=== PATIENT | male | born 1980 | race Caucasian/White ===

== ENCOUNTER 2022-04-24 17:42 | Emergency (ER) | payer OTHER, SELFPAY ==
[2022-04-24 17:45] VITALS: BP 129/71; PULSE 59; RESP 20; TEMP 37; O2SAT 100
--- NOTE | 2022-04-24 19:52 | ED.WOUNDLAC ---
HPI - Wound/Laceration General Chief Complaint: Wound/Laceration Stated Complaint: wounds to legs Time Seen by Provider: 04/24/22 19:29 History of Present Illness HPI narrative: 41-year-old male presented to the emergency department for evaluation of an evolving abscess on his left leg. Patient reports he has a prior history of an abscess to his left upper leg approximately 8 months ago. Patient states about 4 weeks ago he also developed an abscess to the left leg and that it resolved. Patient states few days ago he had 3 new abscesses to the left upper leg. Patient denies any other abscesses at this time. Patient [place] and was started on Bactrim. Patient felt that the redness was worsening so he presented to an urgent care for evaluation. Patient was instructed to present to the emergency department. Patient states that he has had some drainage from the wounds. Patient denies any other significant past medical history. Related Data Home Medications Medication Instructions Recorded Confirmed naproxen 500 mg tablet (Naprosyn) mg 04/24/22 sulfamethoxazole 800 tablet 04/24/22 mg-trimethoprim 160 mg tablet (Bactrim DS) Allergies Allergy/AdvReac Type Severity Reaction Status Date / Time No Known Allergies Allergy Verified 04/24/22 19:54 Review of Systems Review of Systems: CONSTITUTIONAL: Denies fever, chills, or sweats. EYES: Denies visual changes, redness, or discharge. ENT: Denies rhinorrhea, congestion, sore throat, or otalgia. CARDIOVASCULAR: Denies chest pain, palpitations, or edema. RESPIRATORY: Denies cough or dyspnea. GASTROINTESTINAL: Denies abdominal pain, nausea, vomiting, or diarrhea. GENITOURINARY: Denies dysuria or hematuria. SKIN: See HPI MUSCULOSKELETAL: Denies back pain, joint pain, or myalgia. NEUROLOGIC: Denies headache, numbness, or weakness. PSYCHIATRIC: Denies anxiety or depression. Exam Narrative: APPEARANCE: Well appearing, no pain, no distress, well-nourished. HEAD: normocephalic, atraumatic. EYES: PERRLA/EOMI, conjunctivae clear. NOSE: Normal no drainage RESPIRATORY: Airway patent, respirations nonlabored. Clear to auscultation bilaterally, no rales, rhonchi, wheezing. CARDIOVASCULAR: Regular rate and rhythm without murmurs rubs or gallops. ABDOMINAL: Soft, nontender, nondistended, normal bowel sounds MUSCULOSKELETAL: Moves all extremities. Strength/ROM intact, No edema, No calf tenderness. NEURO: Alert. Cranial nerves II through XII intact. Good gait. Good coordination SKIN: 3 small abscesses to the left upper leg. Bedside ultrasound showed no abscess amenable to drainage. PSYCHIATRIC: Normal affect/mood. Course Course Emergency Course: Bedside ultrasound showed no significant fluctuance of the abscesses. The lower wound did have a small amount of fluid but is draining spontaneously. Patient was updated on the results of the work-up and plan for follow-up. Patient is on Bactrim and was recommended to continue this. Patient was also educated on reasons to return to the emergency room. Vital Signs Vital signs: Vital Signs Temperature 98.6 F 04/24/22 17:45 Pulse Rate 59 L 04/24/22 17:45 Respiratory Rate 20 04/24/22 17:45 Blood Pressure 129/71 04/24/22 17:45 Pulse Oximetry 100 04/24/22 17:45 Oxygen Delivery Room Air 04/24/22 17:45 Temperature 98.6 F 04/24/22 17:45 Pulse Rate 70 04/24/22 19:56 Respiratory Rate 18 04/24/22 19:56 Blood Pressure 131/86 04/24/22 19:56 Pulse Oximetry 98 04/24/22 19:56 Oxygen Delivery Room Air 04/24/22 17:45 Discharge Plan Discharge Clinical Impression: Abscess Patient Disposition: Home, Self-Care Condition: Stable Instructions: Antibiotic Form, Abscess (ED) Additional Instructions: Continue antibiotics until completed Wound care as directed. Have close follow-up with your primary care physician for a wound check. Prescriptions: No Action
[2022-04-24 19:56] VITALS: BP 131/86; PULSE 70; RESP 18; O2SAT 98
== END 2022-04-24 20:30 | disposition home or self-care (01) ==
LOC: ANHED 20:09
PROVIDERS: Emergency Provider Emergency Medicine
DX: L02.416 Cutaneous abscess of left lower limb (principal)
CPT/HCPCS: 99281

== ENCOUNTER 2022-04-28 07:19 | Emergency (ER) | payer OTHER, SELFPAY ==
--- NOTE | ~2022-04-28 | XR_ITS ---
XR chest 1V portable DATE: 04/28/2022 08:14 INDICATION: Fever, body chills. Face rash. Headache. TECHNIQUE: Portable upright AP chest views on 04/28/2022 at 0810 hours COMPARISON: None FINDINGS: Normal heart size. No hilar or mediastinal enlargement. No pulmonary infiltrate or consolid ation, pleural effusion or pulmonary vascular congestion or pneumothorax is detected. There is dextroscoliosis of the thoracic spine and levoscoliosis of the lumbar spine. IMPRESSION: No active cardiopulmonary disease Reviewed, dictated and finalized at location B.
[2022-04-28 07:23] VITALS: BP 142/90; PULSE 91; RESP 20; TEMP 37.2; O2SAT 100
--- NOTE | 2022-04-28 07:54 | ED.GENADULT ---
HPI - General Adult General Chief complaint: Recheck/Abnormal Lab/Rx Stated complaint: MRSA and Fever Time Seen by Provider: 04/28/22 07:33 Source: patient, RN notes reviewed and old records reviewed Mode of arrival: ambulatory Limitations: no limitations History of Present Illness HPI narrative: This is a 41 year old male who presents for evaluation of rash, fever, chills. Patient has had multiple wounds to his left thigh, and he has been diagnosed with MRSA and he has been on bactrim for over 1 week. He is reporting chills and fever since Monday. He reports temperature of 100 F this morning and he took naproxen . He also reports redness and itching to his face. He has some drainage from his wounds. He also notes cough for 2 days. He denies nausea, vomiting, diarrhea, sob, chest pain, sore throat, runny nose or urinary symptoms. He has appointment with his doctor tomorrow. Related Data Home Medications Medication Instructions Recorded Confirmed naproxen 500 mg tablet (Naprosyn) mg 04/24/22 sulfamethoxazole 800 tablet 04/24/22 mg-trimethoprim 160 mg tablet (Bactrim DS) Allergies Allergy/AdvReac Type Severity Reaction Status Date / Time No Known Allergies Allergy Verified 04/24/22 19:54 Review of Systems Review of Systems: All systems reviewed & are unremarkable except as noted in HPI and below Constitutional: Constitutional: Reports chills, Reports fatigue and Reports fever(s) ENT: Denies nasal congestion and Denies sore throat Cardiovascular: Cardiovascular: Denies chest pain Respiratory: Respiratory: Denies chest congestion and Reports cough Gastrointestinal: Gastrointestinal: Denies abdominal pain, Denies nausea and Denies vomiting Genitourinary: Genitourinary: Denies hematuria, Denies oliguria and Denies urinary frequency Musculoskeletal: Musculoskeletal: Reports myalgias Integumentary/Breasts: Skin/Breast: Reports pruritus, Reports erythema and Reports rash PMFSH Past Medical History Medical History (Updated 04/28/22 @ 11:06 by Temi Kerr MD) Patient denies medical problems Surgical History Surgical History (Updated 04/28/22 @ 07:59 by Temi Kerr MD) No pertinent past surgical history Social History Social History (Updated 04/28/22 @ 07:59 by Temi Kerr MD) Smoking status: Never smoker Exam Const: General: healthy appearing and alert Nutritional Appearance: well nourished Orientation/consciousness: patient oriented x3 Limitations: no limitations HENMT: Ears: TM's normal bilaterally General nose exam: Normal nares present Face and sinus: sinuses nontender Mouth: Yes lip normal and Yes moist mucous membranes Throat: uvula midline Other: erythematous Eyes: Conjunctivae: conjunctivae normal EOM: EOMs intact bilaterally Resp: Effort & Inspection: normal respiratory effort Auscultation: clear to auscultation bilaterally Cardio: Rate: regular rate Rhythm: regular rhythm Heart sounds: no murmurs GI: GI Palp: Yes Soft to palpation, No Tenderness to palpation present (GI), No Guarding due to palpation present (GI) and No Rigid due to palpation Auscultation: normal bowel sounds Skin: Other: maculopapular rash fo chest and back with facial redness, no oral lesions, no sloughing off skin left thigh with 3 small open with no significant swelling, induration. There is scant pus for 1 wound. Neuro: General: patient oriented x3, moves all extremities and CN's II-XI intact bilaterally Speech: normal speech Gait exam (Neuro): Normal gait present Course Reevaluation(s) Reevaluation #1: Patient states he feels well. He is likely having drug reaction. He will stop taking bactrim. I discussed mild elevation in LFTs. He has decreased wbc of 2.8.He is no toxic appearing. He has appointment with PCP tomorrow. I did offer admission. He will his doctor tomorrow. He understands he will be called if blood cultures positive. Date: 04/28/22
[2022-04-28] MEDS: FAMOTIDINE 20 MG/2 ML VIAL IV PUSH (08:04)
[2022-04-28] MEDS: methylPREDNISolone SOD SUCC 125 MG VIAL IV PUSH (08:04)
[2022-04-28] MEDS: diphenhydrAMINE HCl INJ 50 MG/ML VIAL IV PUSH (08:04)
[2022-04-28 08:09] LABS: Appearance Urine Clear (Clear); Bilirubin Urine Negative (Negative); Color Urine Yellow (Yellow); Glucose Urine UA Negative (Negative); Ketones Urine Negative (Negative); Leukocyte Esterase Ur Negative LEU/UL (Negative); Nitrate Urine Negative (Negative); Protein Urine 1+ mg/dL (Negative); Specific Grav Ur 1.025 (1.001-1.035); Urobilinogen Urine 0.2 mg/dL (<2.0)
[2022-04-28 08:11] LABS: Lactic Acid Reflex 1.2 mmol/L (0.7-2.0)
[2022-04-28 08:15] LABS: Alanine Aminotransferase 58 U/L (6-50); Albumin Level 3.9 g/dL (3.5-5.1); Alkaline Phosphatase 85 U/L (38-126); Anion Gap 10 mmol/L (8-16); Aspartate Amino Transferase 75 U/L (17-59); Bilirubin,Total 0.3 mg/dL (0.2-1.3); Blood Urea Nitrogen 18 mg/dL (9-20); CRP 4.8 mg/dL (<1.0); Calcium 8.7 mg/dL (8.4-10.2); Carbon Dioxide 24 mmol/L (22-30); Chloride 99 mmol/L (98-107); Estimated Glomerular Filt Rate > 60; Glucose 123 mg/dL (65-110); Magnesium 1.7 mg/dL (1.6-2.3); Potassium 3.9 mmol/L (3.4-5.0); Sodium 133 mmol/L (137-145)
[2022-04-28 08:16] VITALS: BP 113/76; PULSE 72; RESP 16; O2SAT 99
[2022-04-28 08:16] LABS: Mucus Urine Rare /lpf; WBC Urine 0-3 /hpf
[2022-04-28 08:17] LABS: Add Urine Microscopic? YES; Blood Urine Trace-Intact (Negative)
[2022-04-28 08:24] LABS: Hematocrit 39.4 % (42.0-52.0); Mean Corpuscular Hemoglobin 29.8 pg (26-34); Mean Corpuscular Volume 90.4 fl (80-100); Mean Platelet Volume 10.9 fl (7.4-10.4); Platelet Count Result 142 k/mm3 (150-375); Red Blood Count 4.36 M/mm3 (4.6-6.20); Red Cell Distribution Width 12.4 % (11.5-14.5); White Blood Count 2.8 K/mm3 (4.5-10.0)
[2022-04-28 08:41] LABS: Influenza A QL RT-PCR Negative (Negative); Influenza B QL RT-PCR Negative (Negative); SARS-CoV-2 RNA PCR Negative
[2022-04-28 08:47] LABS: Band Neutrophils Percent 37 % (0-6); Eosinophils Absolute Manual 0.19 K/mm3 (0.02-0.5); Eosinophils Percent Manual 7 % (0-4); Lymphocytes Absolute Manual 0.25 K/mm3 (1.1-4.5); Lymphocytes Percent Manual 9 % (18-44); Monocytes Absolute Manual 0.25 K/mm3 (0.1-0.90); Monocytes Percent Manual 9 % (3-9); Neutrophils Percent Manual 38 % (46-73); Platelet Estimate Adequate (Adequate); Total Cells Counted 100
[2022-04-28] MEDS: CLINDAMYCIN 600 MG/D5W 50 ML 600 MG/50 ML PIGGYBACK 100 MG IVPB (09:49)
[2022-04-28 09:55] VITALS: BP 110/64; PULSE 73; RESP 16; TEMP 37.4; O2SAT 98
--- NOTE | 2022-04-28 10:35 | PC.NURSE ---
Patient to have have blood cultures drawn. EDP aware IV antibiotics have been started.
[2022-04-28 11:10] VITALS: BP 111/67; PULSE 76; RESP 17; O2SAT 98
== END 2022-04-28 11:23 | disposition home or self-care (01) ==
PROVIDERS: Emergency Provider General Practice
DX: L73.9 Follicular disorder, unspecified (principal); L27.0 Generalized skin eruption due to drugs and medicaments taken internally; T36.8X5A Adverse effect of other systemic antibiotics, initial encounter; A49.02 Methicillin resistant Staphylococcus aureus infection, unspecified site
CPT/HCPCS: 36415; 71045; 80053; 81001; 83605; 83735; 85025; 86140; 87040; 87081; 87502; 87880; 96365; 96375; 99284; C9803; J1200; J2930; U0003; U0005

== ENCOUNTER 2022-05-09 07:59 | Emergency (ER) | payer OTHER, SELFPAY ==
[2022-05-09 08:00] VITALS: BP 126/72; PULSE 87; RESP 20; TEMP 36.7; O2SAT 99
--- NOTE | 2022-05-09 08:28 | ED.GENADULT ---
HPI - General Adult General Chief complaint: Allergic Reaction Stated complaint: allergic reaction Time Seen by Provider: 05/09/22 08:09 Source: RN notes reviewed History of Present Illness HPI narrative: Patient presents emergency department from home for rash patient states that he had initially been diagnosed with an infection on his left leg back on 04/24/2022 at that time he been started on Bactrim and after taking Bactrim he had developed a diffuse rash and was seen in the emergency department again on 04/28/2022 that time the Bactrim was stopped and the patient was changed to clindamycin he was given steroids as well as Pepcid and Claritin and he states the rash improved within 24 hours went away patient states he had been doing well until the rash returned 2 days ago and worsened yesterday noticed a diffuse urticarial rash that is itchy also notes some redness of the face he states he feels swollen in the face but denies any definitive swelling of the lips or tongue he denies any shortness of breath he states he finished his clindamycin yesterday and has not had any Bactrim since that time he states he did take 50 mg of Benadryl as well as Pepcid and Claritin this morning Related Data Home Medications Medication Instructions Recorded Confirmed naproxen 500 mg tablet (Naprosyn) mg 04/24/22 sulfamethoxazole 800 tablet 04/24/22 mg-trimethoprim 160 mg tablet (Bactrim DS) Allergies Allergy/AdvReac Type Severity Reaction Status Date / Time sulfamethoxazole Allergy Rash Verified 05/09/22 08:03 [From Bactrim] trimethoprim [From Bactrim] Allergy Rash Verified 05/09/22 08:03 Review of Systems Review of Systems: Gen.: Denies fevers or chills ENT: Denies congestion Respiratory: Denies shortness of breath or cough CV: Denies chest pain or palpitations GI: Denies abdominal pain nausea, emesis or diarrhea Musculoskeletal: Denies back pain or muscle pain Neuro denies headache or weakness Skin: See HPI Except as documented, all other systems reviewed and negative PMFSH Past Medical History Medical History Patient denies medical problems Surgical History Surgical History (Updated 04/28/22 @ 07:59 by Temi Kerr MD) No pertinent past surgical history Social History Social History Smoking status: Never smoker Exam Narrative: APPEARANCE: No acute distress, nontoxic, resting in bed EYES: EOMI HEENT: Normocephalic, atraumatic, OMM no swelling of the lips or tongue no intraoral lesions seen airway patent RESPIRATORY: No respiratory distress Clear to auscultation bilaterally with no rhonchi wheezing or rales. CARDIOVASCULAR: Regular rate and rhythm without murmurs rubs or gallops. ABDOMINAL: Soft, nontender, nondistended, no rebound or guarding MUSCULOSKELETAl: Moves all extremities. No clubbing, cyanosis or edema. NEURO: Awake and alert. Following commands, speech normal, no focal deficits SKIN:: Warm, dry. Diffuse urticarial rash of the chest abdomen back and extremities and face there are no vesicles or no open wound PSYCHIATRIC: Normal affect and mood diffuse Course Course Emergency Course: Reviewed old records Given steroids in ED with some improvement in the rash discussed with patient rash has now been ongoing for 24 hours I will have patient follow-up with dermatology Discussed with patient results of workup and diagnosis. Discussed need for follow-up with primary care, proper use of medication, and reasons to return to the emergency department. Patient understands and agrees to current treatment plan Vital Signs Vital signs: Vital Signs Temperature 98.0 F 05/09/22 08:00 Pulse Rate 87 05/09/22 08:00 Respiratory Rate 20 05/09/22 08:00 Blood Pressure 126/72 05/09/22 08:00 Pulse Oximetry 99 05/09/22 08:00 Oxygen Delivery Room Air 05/09/22 08:00 Temperature 98
[2022-05-09 08:45] LABS: Basophils Percent Auto 0.2 % (0.2-1.2); Eosinophils Absolute Auto 0.3 K/mm3 (0-0.3); Eosinophils Percent Auto 2.6 % (0-4.4); Hematocrit 44.4 % (42.0-52.0); Hemoglobin 14.4 g/dL (14.0-18.0); Immature Granulocyte Absolute 0.04 K/mm3 (0.00-0.031); Immature Granulocyte Percent A 0.4 % (0-0.5); Lymphocytes Absolute Auto 1.07 K/mm3 (0.9-3.2); Lymphocytes Percent Auto 9.8 % (18.3-44.2); Mean Corpuscular HGB Conc 32.4 g/dl (32-36); Mean Corpuscular Hemoglobin 29.8 pg (26-34); Mean Corpuscular Volume 91.9 fl (80-100); Monocytes Percent Auto 8.7 % (2.6-8.5); Neutrophils Absolute Auto 8.6 K/mm3 (1.3-6.7); Neutrophils Percent Auto 78.3 % (45.5-73.1); Platelet Count Result 302 k/mm3 (150-375); Red Blood Count 4.83 M/mm3 (4.6-6.20); Red Cell Distribution Width 12.7 % (11.5-14.5); White Blood Count 10.9 K/mm3 (4.5-10.0)
[2022-05-09] MEDS: methylPREDNISolone SOD SUCC 125 MG VIAL IV PUSH (09:00)
[2022-05-09 09:04] LABS: Alanine Aminotransferase 158 U/L (6-50); Alkaline Phosphatase 71 U/L (38-126); Anion Gap 4 mmol/L (8-16); Aspartate Amino Transferase 52 U/L (17-59); Bilirubin,Total 0.5 mg/dL (0.2-1.3); Blood Urea Nitrogen 22 mg/dL (9-20); Calcium 8.6 mg/dL (8.4-10.2); Carbon Dioxide 32 mmol/L (22-30); Chloride 99 mmol/L (98-107); Estimated CRCL calculation 84 ml/min; Estimated Glomerular Filt Rate > 60; Glucose 127 mg/dL (65-110); Potassium 4.3 mmol/L (3.4-5.0); Sodium 135 mmol/L (137-145)
[2022-05-09 11:19] VITALS: BP 123/74; PULSE 81; RESP 18; O2SAT 97
== END 2022-05-09 11:12 | disposition home or self-care (01) ==
PROVIDERS: Emergency Provider Emergency Medicine
DX: T78.40XA Allergy, unspecified, initial encounter (principal)
CPT/HCPCS: 36415; 80053; 85025; 96374; 99284; J2930